=== PATIENT | female | born 1970 | race Caucasian/White ===

== ENCOUNTER → 2019-08-20 | Emergency (ER) | payer BC ==
[~2019-08-20] VITALS: Ht 175.3 cm; Wt 79.4 kg
[~2019-08-20] MED LIST: COUMADIN4 MG PO; JANTOVEN4 MG PO; VITAMIN D325 MC1 PO; WARFARIN SODIUM3 MG PO
== END ==
LOC: ED 10:23
DX: G57.62 Lesion of plantar nerve, left lower limb (principal); Z88.8 Allergy status to other drugs, medicaments and biological substances; Z79.899 Other long term (current) drug therapy; Z79.01 Long term (current) use of anticoagulants
CPT/HCPCS: 99283